=== PATIENT | male | born 1990 | race Caucasian/White ===

== ENCOUNTER 2016-05-08 20:40 | Emergency (ER) | payer SELFPAY ==
[~2016-05-08] VITALS: Ht 162.6 cm; Wt 72.7 kg
[2016-05-08 20:44] VITALS: BP 120/78
[2016-05-08] MEDS ORDERED: PENI500T2 PO (20:48)
[2016-05-08] MEDS ORDERED: IBUP-1547 PO (20:48)
== END 2016-05-08 22:46 | disposition left against medical advice (07) ==
LOC: EMS 20:47
DX: J02.9 Acute pharyngitis, unspecified (principal); Z53.21 Procedure and treatment not carried out due to patient leaving prior to being seen by health care provider

== ENCOUNTER 2016-06-05 12:45 | Emergency (ER) | payer SELFPAY ==
[~2016-06-05] VITALS: Ht 162.6 cm; Wt 70.5 kg
[~2016-06-05 12:45] MED LIST: IBUP-1547 PO; PENI500T2 PO
[2016-06-05 13:23] VITALS: BP 115/58
[2016-06-05] MEDS ORDERED: [UNRECOGNIZED DRUG - REMARK] PO (13:28)
== END 2016-06-05 16:21 | disposition left against medical advice (07) ==
LOC: EMS 12:46
DX: R42 Dizziness and giddiness (principal); R06.02 Shortness of breath; Z53.21 Procedure and treatment not carried out due to patient leaving prior to being seen by health care provider

== ENCOUNTER 2016-07-13 22:18 | Emergency (ER) | payer SELFPAY ==
[~2016-07-13] VITALS: Ht 162.6 cm; Wt 68.2 kg
[2016-07-13 22:18] VITALS: BP 123/81
[~2016-07-13 22:18] MED LIST changes: -IBUP-1547 PO; -PENI500T2 PO; +[UNRECOGNIZED DRUG - REMARK] PO
== END 2016-07-14 00:39 | disposition left against medical advice (07) ==
LOC: EMS 22:18
DX: F41.9 Anxiety disorder, unspecified (principal); Z53.21 Procedure and treatment not carried out due to patient leaving prior to being seen by health care provider